=== PATIENT | female | born 2000 | race Caucasian/White ===

== ENCOUNTER → 2019-08-01 | Outpatient (CLI) | payer BC ==
[~2019-08-01] MED LIST: AMOCLA875 PO; HYDR1TAB94 PO
[2019-08-04 02:06] LABS: CHLAMYDIA TRACHOMATIS, NAA Negative (Negative); NEISSERIA GONORRHOEAE, NAA Negative (Negative)
== END | disposition home or self-care (01) ==
LOC: LAB SHORT 14:28 → LAB 14:28
PROVIDERS: Obstetrics & Gynecology
DX: Z11.3 Encounter for screening for infections with a predominantly sexual mode of transmission (principal)
CPT/HCPCS: 87491; 87591

== ENCOUNTER → 2020-07-30 | Outpatient (CLI) | payer BC | LOC: LAB SHORT 07:27 → PLD 07:27 | DX: D22.5 Melanocytic nevi of trunk (principal) | CPT/HCPCS: 88305 ==

== ENCOUNTER → 2021-07-18 | Outpatient (CLI) | payer BC ==
[2021-07-19 09:31] LABS: Candida species (DNA Probe) Negative (NEGATIVE); G. vaginalis (DNA Probe) Negative (NEGATIVE); T. vaginalis (DNA Probe) Negative (NEGATIVE)
== END | disposition home or self-care (01) ==
LOC: LAB SHORT 09:54 → LAB 09:54
PROVIDERS: Family Medicine
DX: Z01.419 Encounter for gynecological examination (general) (routine) without abnormal findings (principal); N89.8 Other specified noninflammatory disorders of vagina
CPT/HCPCS: 87480; 87510; 87660; G0123

== ENCOUNTER → 2023-12-24 | Outpatient (CLI) | payer BC | LOC: LAB 17:58 → LAB SHORT 17:58 | PROVIDERS: Family Medicine | DX: Z01.419 Encounter for gynecological examination (general) (routine) without abnormal findings (principal) | CPT/HCPCS: G0123 ==

== ENCOUNTER → 2024-07-07 | Outpatient (CLI) | payer BC ==
[2024-07-07 17:14] LABS: Bacterial Vaginosis PCR Negative (NEGATIVE); Candida Group, PCR NOT DETECTED (NOT DETECT); Candida glabrata-krusei, PCR NOT DETECTED (NOT DETECT)
== END ==
LOC: LAB SHORT 15:26 → LAB 15:26
PROVIDERS: Family Medicine
DX: N89.8 Other specified noninflammatory disorders of vagina (principal)
CPT/HCPCS: 87481; 87661; 87801

== ENCOUNTER 2024-10-14 23:21 | Emergency (ER) | payer BC ==
[~2024-10-14] VITALS: Ht 170.2 cm; Wt 59.0 kg
[2024-10-14] MEDS ORDERED: Acetaminophen 500 MG Tab PO ONE (23:35)
[2024-10-14] MEDS ORDERED: Ibuprofen 600 MG Tab PO ONE (23:35)
[2024-10-14] MEDS ORDERED: ACET500 PO (23:57)
[2024-10-14] MEDS ORDERED: IBUP600 PO (23:57)
[2024-10-15] VITALS: BP 135/81
== END 2024-10-15 00:05 | disposition home or self-care (01) ==
LOC: ER 23:21
DX: R07.9 Chest pain, unspecified (principal); Z88.2 Allergy status to sulfonamides
CPT/HCPCS: 71045; 93005; 93010; 99283-25; A9270

== ENCOUNTER → 2025-07-28 | Outpatient (CLI) | payer BC ==
[~2025-07-28] MED LIST changes: +ACET500 PO; +IBUP600 PO
[2025-07-28 13:07] LABS: Source, Urine Voided
[2025-07-28 13:57] LABS: Bilirubin, Urine Neg (Neg); Glucose Qualitative, Urine Neg (Neg); Ketones, Urine Neg (Neg); Leukocyte Esterase, Urine Neg (Neg); Protein, Urine Neg (Neg); Specific Gravity, Urine 1.005 (1.003-1.022); Urobilinogen, Urine NORM (Normal)
[2025-07-28 14:11] LABS: Color, Urine Pale Yellow (P-Yellow)
[2025-07-29 07:15] LABS: Bacterial Vaginosis PCR Negative (NEGATIVE); Candida Group, PCR NOT DETECTED (NOT DETECT); Candida glabrata-krusei, PCR NOT DETECTED (NOT DETECT)
== END ==
LOC: LAB 13:06 → LAB SHORT 13:06
PROVIDERS: Obstetrics & Gynecology
DX: N89.8 Other specified noninflammatory disorders of vagina (principal)
CPT/HCPCS: 81003; 81515

== ENCOUNTER → 2025-08-21 | Outpatient (CLI) | payer BC ==
[2025-08-21 20:15] LABS: Bacterial Vaginosis PCR Negative (NEGATIVE); Candida Group, PCR NOT DETECTED (NOT DETECT); Candida glabrata-krusei, PCR NOT DETECTED (NOT DETECT)
== END ==
LOC: LAB 15:58 → LAB SHORT 15:58
PROVIDERS: Obstetrics & Gynecology
DX: N76.0 Acute vaginitis (principal)
CPT/HCPCS: 81515